=== PATIENT | female | born 1985 | race Caucasian/White ===

== ENCOUNTER 2021-03-17 16:09 | Emergency (ER) | payer OTHER ==
[~2021-03-17] VITALS: Ht 172.7 cm; Wt 127.0 kg
[~2021-03-17 16:09] MED LIST: CITA20 PO; RANI150 PO; XYZAL PO
[2021-03-17] MEDS ORDERED: ONDA4 PO (18:11)
[2021-03-17] MEDS ORDERED: BENZ100A PO (18:11)
== END 2021-03-17 18:57 | disposition home or self-care (01) ==
LOC: ER 16:09
DX: U07.1 COVID-19 (principal); Z23 Encounter for immunization; J45.909 Unspecified asthma, uncomplicated; Z79.899 Other long term (current) drug therapy
CPT/HCPCS: 36415; 96374; 96375; 99282-25; J1885; J2405; M0243; Q0243